=== PATIENT | female | born 1995 | race Caucasian/White ===

== ENCOUNTER 2018-08-15 01:32 | Emergency (ER) | payer MEDICAID ==
[~2018-08-15] VITALS: Ht 165.1 cm; Wt 47.6 kg
[2018-08-15 02:01] VITALS: BP 104/73
--- NOTE | 2018-08-15 02:04 | NUR ---
ED Nurse Note: Pt injected the drug to herself and she thinks she is possible having infection. pt assessed with female RN.
--- NOTE | 2018-08-15 02:30 | NUR ---
ED Nurse Note: PT presents with bruises on arms and is hostile to explain why or how they got to be there. pt denies abuse. pt denies harm to self, harm to others.
[2018-08-15 04:02] VITALS: BP 110/75
--- NOTE | 2018-08-15 04:30 | NUR ---
ED Nurse Note: PT refuses to take off ID band an is verbally combative to obey Hospital protocal to remove ID band. Security was summoned to enforce compliance. Id was later removed by PT.
[2018-08-15 04:50] VITALS: BP 110/75
--- NOTE | 2018-08-15 04:50 | NUR ---
ER DISCHARGE NOTE: Patient is cleared to be discharged per ERMD, pt is aox4, on room air, with stable vital signs. pt was given dc and prescription instructions, pt was able to verbalize understanding, pt id band removed without complications. pt is able to ambulate with steady gait. pt took all belongings.
--- NOTE | 2018-09-05 10:42 | Emergency Room Report ---
History of Present Illness General Chief Complaint: General Complaint Source: Patient Present Illness HPI Patient is a 22-year-old female presented after possible skin infection. Patient reports having a recent IV drug use. She reports having possible abscess. She states that she had been injecting heroin. Patient states that she additionally uses crystal meth. Patient denies any fever. She states this is been present for several days. Patient denies any numbness or weakness to her extremities. Patient History Past Medical History: see triage record Last Menstrual Period: no period for 2 years Now: No Reviewed Nursing Documentation: PMH: Agreed; PSxH: Agreed Nursing Documentation-PMH Past Medical History: No Stated History Review of Systems All Other Systems: negative except mentioned in HPI Physical Exam General Appearance: well appearing, no apparent distress, alert, GCS 15 Head: normocephalic, atraumatic ENT: hearing grossly normal, normal voice Neck: full range of motion, supple Respiratory: normal inspection, no respiratory distress, speaking full sentences Cardiovascular #1: normal inspection, no murmur Gastrointestinal: normal inspection Musculoskeletal: normal inspection Neurologic: normal inspection, alert, oriented x3, responsive, 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 Medical Decision Making Diagnostic Impression: Primary Impression: Skin rash ER Course Patient presented for skin rash. Differential diagnosis includes is not limited to cellulitis, abscess, scar tissue among others. Patient has a benign exam and does not appear to require any further imaging or laboratory testing at this time. Patient does not appear to have any evidence of abscess at this time. Patient appears to have some track salazar from recent IV drug use but does not appear to be infected. Patient was advised to recheck with primary care physician in the next few days. She is advised to stop using drugs. Patient does not appear to require antibiotics at this time. Status: improved Disposition: HOME, SELF-CARE Condition: Stable Patient Instructions: Efrain, [id number] Saran Rivera MD Sep 05, 2018 10:42
== END 2018-08-15 04:50 | disposition home or self-care (01) ==
LOC: EMR 02:20
DX: R21 Rash and other nonspecific skin eruption (principal); F15.10 Other stimulant abuse, uncomplicated; F11.10 Opioid abuse, uncomplicated
CPT/HCPCS: 99282